=== PATIENT | female | born 1960 | race Caucasian/White ===

== ENCOUNTER 2020-06-28 13:43 | Inpatient (IN) | payer OTHER, SELFPAY ==
[~2020-06-28] VITALS: Ht 167.6 cm; Wt 61.2 kg
[2020-06-28 14:04] VITALS: BP 121/52
--- NOTE | 2020-06-28 15:36 | NUR ---
C/O CHILLS, FEVER, ABD PAIN, COUGH, MILD SOB X2 WEEKS PMH: DM, CHF NKDA
--- NOTE | 2020-06-28 15:41 | NUR ---
COVID SWAB PERFORMED AND WALKED TO LAB
[2020-06-28 18:03] LABS: BASOPHILS % (AUTO) 0.1 % (0.0-2.0); EOSINOPHILS % (AUTO) 0.1 % (0.0-4.0); HEMATOCRIT 32.6 % (36-48); LYMPHOCYTES # (AUTO) 1.6 K/uL (2.5-16.5); LYMPHOCYTES % (AUTO) 19.1 % (20.5-51.1); MEAN CORPUSCULAR HEMOGLOBIN 29 pg (27-31); MEAN CORPUSCULAR HGB CONC 34 g/dL (33-37); MEAN CORPUSCULAR VOLUME 84.3 fL (80-94); MONOCYTES # (AUTO) 0.9 K/uL (0.8-1.0); MONOCYTES % (AUTO) 10.9 % (1.7-9.3); NEUTROPHILS # (AUTO) 5.7 K/uL (1.8-7.7); NEUTROPHILS % (AUTO) 69.8 % (42.2-75.2); PLATELET COUNT (AUTO) 314 K/uL (140-450); RED BLOOD CELL COUNT(AUTO) 3.87 MIL/uL (4.20-5.40); WHITE BLOOD COUNT (AUTO) 8.2 K/uL (4.8-10.8)
--- NOTE | 2020-06-28 18:11 | NUR ---
INFLUENZA & RSV SWABS DONE. WALKED TO LAB
--- NOTE | 2020-06-28 18:11 | NUR ---
PT ABLE TO PRODUCE URINE SPECIMEN AT THIS TIME. SPECIMEN IN DIRTY UTILITY.
[2020-06-28 18:21] LABS: PROTHROMBIN TIME 9.1 secs (10.8-13.4)
[2020-06-28 18:24] LABS: ALBUMIN 2.4 g/dL (3.4-5.0); ANION GAP 15.5 (8-16); CARBON DIOXIDE 24.4 mmol/L (21-32); CREATININE 1.2 mg/dL (0.6-1.3); LACTATE DEHYDROGENASE 424 U/L (81-234); POTASSIUM 3.9 mmol/L (3.5-5.1); TOTAL BILIRUBIN 0.3 mg/dL (0.0-1.0)
--- NOTE | 2020-06-28 18:46 | NUR ---
VINCE SWAB DONE. WALKED TO LAB.
[2020-06-28 18:50] LABS: RSV NEGATIVE (NEGATIVE)
--- NOTE | 2020-06-28 19:35 | NUR ---
PT WAS NOTED DESATURATING ON RA PT WAS PLACED ON 2L VIA NC. SATURATION INCREASED TO 94%. WILL CONTINUE TO MONITOR. ON CARDIAC MONITORING, PULSE OXIMETRY AND BP MONITORING.
--- NOTE | 2020-06-28 19:37 | NUR ---
REPORT GIVEN TO RISHABH RUANO. ALL CARES TRANSFERRED AT THIS TIME.
[2020-06-28 19:59] LABS: APPEARANCE,URINE CLEAR (CLEAR); BILIRUBIN,URINE NEGATIVE (NEGATIVE); BLOOD, URINE NEGATIVE (NEGATIVE); COLOR,URINE YELLOW (YELLOW); LEUKOCYTE ESTERASE ,URINE TRACE (NEGATIVE); NITRITE, URINE NEGATIVE (NEGATIVE); UGLUCOSE NEGATIVE (NEGATIVE)
[2020-06-28 21:10] LABS: RBC,URINE 0-5 /HPF (0-5)
[2020-06-28] MEDS ORDERED: HYDROcodone/APAP 5/325 MG 1 TAB TAB PO PRN (21:15)
[2020-06-28] MEDS ORDERED: ACETAMINOPHEN 325 MG TAB PO PRN (21:15)
[2020-06-28] MEDS ORDERED: MORPHINE SULFATE 2 MG/ML SYR IVP PRN (21:15)
[2020-06-28] MEDS ORDERED: LOVENOX 1MG/KG Q12H SUBQ SCH (21:20)
--- NOTE | 2020-06-28 21:26 | NUR ---
CALLED AFTER HOURS PHARMACY SPOKE WITH ALLISON REGARDING MEDICATIONS NOT ON EMAR SYSTEM. VERBALIZED SHE WOULD WORK ON MEDICATIONS.
[2020-06-28] MEDS ORDERED: AZITHROMYCIN 500 MG INJ VIAL IV ONE (21:32)
[2020-06-28] MEDS ORDERED: cefTRIAXone 1,000 MG VIAL ONE (21:33)
--- NOTE | 2020-06-28 21:35 | NUR ---
20 G IV SITE ESTABLISHED TO R AC, SITE WAS FLUSHED WITH 10 ML OF 0.9% NS. SITE WAS PATENT NO INFILTRATION NOTED.
--- NOTE | 2020-06-28 22:00 | NUR ---
PT C/O MODERATE "SHARP" LOWER ABD PAIN 12/27. ABD WAS ROUND SOFT AND NON-TENDER TO TOUCH. ACTIVE BOWEL SOUNDS TO ALL QUADRANTS. Addendum: 06/28/20 at 2206 by MEDGE PT WAS GIVEN NORCO FOR PAIN AT THIS TIME.
[2020-06-28] MEDS: AZITHROMYCIN 500 MG in DEXTROSE 5% 250 ML IV SCH (22:03)
[2020-06-28] MEDS: ENOXAPARIN 60 MG/0.6 ML SYR SUBQ SCH (22:14)
--- NOTE | 2020-06-28 22:32 | NUR ---
BERNARD 337. BP: 124/45. PAGED DR. DAMON AT AT AFTER HOURS PHYSICIAN, SPOKE WITH GAS APPLIANCE REPAIRER AND STATED SHE WOULD PAGE DR. DAMON.
--- NOTE | 2020-06-28 22:35 | NUR ---
RECEIVED CALL BACK FROM DR. DAMON WITH NEW ORDERS FOR SLIDDING SCALE COVERAGE AND 1L OF 0.9% NS TO BE GIVEN ONCE FOR LOW DYSTOLIC BP. Addendum: 06/28/20 at 2312 by SERENA *ORDER OF LISPRO SLIDDING SCALE COVERAGE.
[2020-06-28] MEDS ORDERED: NACL 0.9% 1,000 ML IV SCH (23:00)
[2020-06-28] MEDS ORDERED: INSULIN LISPRO SLIDING SCALE 100 UNITS/ML VIAL SUBQ PRN (23:00)
--- NOTE | 2020-06-28 23:12 | NUR ---
PT WAS GIVEN 8 UNITS OF LISPRO INSULIN FOR BS OF 337. WILL CONTINUE TO MONITOR FOR EFFECTIVENESS.
[2020-06-29] MEDS ORDERED: INSULIN LISPRO SLIDING SCALE 100 UNITS/ML VIAL SUBQ SCH
--- NOTE | 2020-06-29 00:05 | NUR ---
ACCUCHECK AT THIS TIME WAS 197. NOTIFIED DR. DAMON NO NEW ORDERS AT THIS TIME. VERBALIZED "OKAY THATS FINE". Addendum: 06/29/20 at 0335 by SERENA *NOTIFIED VIA TELEPHONE AFTER HOURS SERVICE PAGE.
[2020-06-29] MEDS ORDERED: NACL 0.9% 1,000 ML IV ONE (00:10)
[2020-06-29 01:23] LABS: C-REACTIVE PROTEIN QUANT 27.7 mg/dL (0.0-0.9)
[2020-06-29] MEDS: INSULIN LISPRO SLIDING SCALE 100 UNITS/ML VIAL SUBQ PRN (02:27)
--- NOTE | 2020-06-29 02:35 | NUR ---
PT LAYING IN BED IN ACUTE DISTRESS NOTED, BREATHING EVEN AND UNLABORED WITH 4L OF OXYGEN VIA NC. PT WAS ASSISTED TO A COMFORTABLE POSITION AND ADJUSTED THE HOB. ASSISTED PT WITH BEDSIDE BED BOONE. SKIN WAS NOTED CLEAN, DRY & INTACT. WILL CONTINUE ON CARDAIC MONITORING, BP MONITORING AND PULSE OXIMETRY.
--- NOTE | 2020-06-29 03:55 | NUR ---
PT WAS ASSISTED TO USE THE BATHROOM VIA BEDSIDE BEDPAN AND ADJUSTED HOB TO A COMFORTABLE POSITION.
--- NOTE | 2020-06-29 05:33 | NUR ---
PT UNABLE TO PROVIDE HOME MEDICATION REGIMEN PROVIDED DAUGHTERS CONTACT INFO . DAUGHTER PROVIDED MEDICATION REGIMEN. ALSO PROVIDED WITH AN UPDATE ON PT STATUS WITH PT'S VERBAL CONSENT.
--- NOTE | 2020-06-29 05:35 | NUR ---
PT WAS NOTED DE-SATURATING ON 4 L INCREASED OXYGEN TO 6 L VIA NC. SATURATION INCREASED TO 96%.
[2020-06-29] MEDS ORDERED: CARV3.122 PO (05:39)
[2020-06-29] MEDS ORDERED: HYDR-3320 PO (05:39)
[2020-06-29] MEDS ORDERED: AMLO5TAB PO (05:39)
[2020-06-29] MEDS ORDERED: HUM SUBQ (05:39)
[2020-06-29] MEDS: ONDANSETRON 4 MG/2 ML VIAL IVP PRN (06:46)
--- NOTE | 2020-06-29 06:54 | NUR ---
PT C/O NAUSEA AND VOMITING A SMALL AMOUNT OF CLEAR LIQUID. PT WAS GIVEN PRN ZOFRAN. CHANGED BED SHEETS AT THIS TIME. ASSISTED PT TO USE THE BATHROOM VIA BEDSIDE BOONE. PT CONTINUES ON CARDIAC MONITORING, PULSE OXIMETRY AND BP MONITORING. BED LOCKED AND IN LOWEST POSITION. ADJUSTED HOB TO DESIRED HEIGHT.
--- NOTE | 2020-06-29 06:59 | NUR ---
ACCUCHECK 149. NO SLIDDING SCALE COVERAGE REQUIRED.
--- NOTE | 2020-06-29 07:11 | NUR ---
LAB A BEDSIDE FOR BLOOD DRAW.
--- NOTE | 2020-06-29 07:21 | NUR ---
Report received from RISHABH Rosales from cuff slitter for continuity of care
--- NOTE | 2020-06-29 07:23 | NUR ---
REPORT GIVEN TO ABBIE KEATING FOR CONTINUITY OF CARE.
--- NOTE | 2020-06-29 07:42 | NUR ---
BIBS for c/o fever, chills, cough, SOB, N&V, abd pain x 2 weeks. Patient swabbed for COVID-19 rapid POSITIVE. NKDA, PMH DM2 and CHF. Patient in droplet isolation, awaiting Med Surg bed/room A, A, O x 4, Indonesian speaking only, screams and calls out instead of using call light for RN. Resp even and unlabored, desaturates w/o O2, continuous O2 @ 6l/min NC O2 sat w/O2 is 94-97% HOB elevated, VVS, in NAD. IV #20g right AC, patent Moving all exts w/o difficulty, skin intact Will continue to monitor
[2020-06-29] MEDS ORDERED: LOSA25TA32 PO (07:50)
[2020-06-29] MEDS ORDERED: AMLO-3 PO (07:50)
--- NOTE | 2020-06-29 08:08 | NUR ---
Patient screaming for water in [place]. Brought patient new pitcher of water and Regular diet tray for breakfast
[2020-06-29 08:39] LABS: EOSINOPHILS % (AUTO) 0.2 % (0.0-4.0); HEMOGLOBIN 10.6 g/dL (12.0-16.0); MEAN CORPUSCULAR VOLUME 84.7 fL (80-94); MONOCYTES % (AUTO) 9.2 % (1.7-9.3)
[2020-06-29 08:42] LABS: BASOPHILS % (AUTO) 0.2 % (0.0-2.0); HEMATOCRIT 31.2 % (36-48); LYMPHOCYTES # (AUTO) 1.7 K/uL (2.5-16.5); LYMPHOCYTES % (AUTO) 12.3 % (20.5-51.1); MEAN CORPUSCULAR HEMOGLOBIN 29 pg (27-31); MEAN CORPUSCULAR HGB CONC 34 g/dL (33-37); MONOCYTES # (AUTO) 1.3 K/uL (0.8-1.0); NEUTROPHILS # (AUTO) 11.1 K/uL (1.8-7.7); NEUTROPHILS % (AUTO) 78.1 % (42.2-75.2); PLATELET COUNT (AUTO) 254 K/uL (140-450); RED BLOOD CELL COUNT(AUTO) 3.68 MIL/uL (4.20-5.40); WHITE BLOOD COUNT (AUTO) 14.2 K/uL (4.8-10.8)
--- NOTE | 2020-06-29 08:55 | NUR ---
Patient ate 80% of regular diet breakfast, tolerated well
[2020-06-29] MEDS: ASCORBIC ACID 500 MG TAB PO SCH (09:00)
[2020-06-29] MEDS: DEXAMETHASONE 4 MG/ML VIAL IVP SCH (09:00)
[2020-06-29] MEDS: ZINC SULF 220 MG CAP PO SCH ×2 (09:00→22:30)
[2020-06-29 09:10] LABS: ALBUMIN 2.2 g/dL (3.4-5.0); ANION GAP 12.4 (8-16); CARBON DIOXIDE 25.6 mmol/L (21-32); CREATININE 0.9 mg/dL (0.6-1.3); MAGNESIUM 1.6 mg/dL (1.8-2.4); TOTAL BILIRUBIN 0.3 mg/dL (0.0-1.0)
--- NOTE | 2020-06-29 09:50 | NUR ---
Patient used the bedpan to void, in isolation and cannot ambulate to washroom
[2020-06-29] MEDS: CHOLECALCIFEROL 1,000 IU TAB PO SCH (10:10)
[2020-06-29] MEDS: ENOXAPARIN 60 MG/0.6 ML SYR SUBQ SCH ×2 (10:15→21:00)
--- NOTE | 2020-06-29 12:48 | NUR ---
Regular diet lunch tray given to patient, HOB elevated, VVS
--- NOTE | 2020-06-29 13:07 | NUR ---
Patient ate 100% of regular diet lunch, tolerated well
--- NOTE | 2020-06-29 14:22 | NUR ---
SOCIAL WORK NOTE: SW WAS UNABLE TO MEET PATIENT AT BEDSIDE DUE TO MEDICAL CONDITION. SW CONTACTED PATIENT'S DAUGHTER DEBBI BARAJAS [phone] TO COMPLETE ASSESSMENT. SW LEFT VM. SW WILL FOLLOW UP.
--- NOTE | 2020-06-29 16:35 | NUR ---
Patient c/o feeling isolated and uncared for due to droplet isolation practice
--- NOTE | 2020-06-29 17:24 | NUR ---
Patient voided using bedpan due to isolation status, wolfgang urine
--- NOTE | 2020-06-29 18:24 | NUR ---
Regular diet dinner tray brought to patient
--- NOTE | 2020-06-29 18:50 | NUR ---
fingerstick blood sugar 477 mg/dl, will emmanuel LARIOS
--- NOTE | 2020-06-29 19:20 | NUR ---
received detailed report from RISHABH Riojas
--- NOTE | 2020-06-29 19:20 | NUR ---
Detailed report given to RISHABH Noriega for towel stretcher, questions answered, orders and meds reviewed
--- NOTE | 2020-06-29 19:35 | NUR ---
awake and alert, sitting on side of bed. ATE 100% OF DIET TRAY. STATES " I FEEL BETTER"
[2020-06-29] MEDS: AZITHROMYCIN 500 MG in DEXTROSE 5% 250 ML IV SCH (21:00)
--- NOTE | 2020-06-29 22:15 | NUR ---
REPORT CALLED TO RISHABH TYLER
[2020-06-29] MEDS ORDERED: AZITHROMYCIN 500 MG INJ VIAL IV ONE (22:39)
[2020-06-29] MEDS ORDERED: cefTRIAXone 1,000 MG VIAL ONE (22:40)
--- NOTE | 2020-06-29 22:50 | NUR ---
TO 102A VIA W/C
[2020-06-29 22:55] VITALS: BP 122/50
--- NOTE | 2020-06-29 22:55 | NUR ---
RECEIVED PATIENT IN STABLE CONDITION FROM ER VIA WHEELCHAIR. AAOX4. RESPIRATIONS EVEN, UNLABORED. CONTINUES ON O2 4L VIA NC, O2SAT 94%. SKIN WARM, DRY. SKIN INTACT. IV SITE NOTED TO RIGHT AC 20G PATENT/INTACT. NO C/O PAIN. NO S/S ACUTE DISTRESS. ABDOMEN SOFT, NONTENDER. PATIENT IS CONTINENT OF B/B. MRSA SCREEN COMPLETED. PATIENT ORIENTED TO ROOM/STAFF/CALL LIGHT. PATIENT AMBULATES WELL, SLIGHTLY SOB UPON EXERTION. ENCOURAGED FREQUENT REST PERIODS. PATIENT VERBALIZED UNDERSTANDING. PLAN OF CARE DISCUSSED. CALL LIGHT IN REACH. ISOLATION PRECAUTIONS OBSERVED BY ALL STAFF.
--- NOTE | 2020-06-29 23:00 | NUR ---
DUE MEDS GIVEN. PATIENT IS RESTING COMFORTABLY IN BED. NO S/S ACUTE DISTRESS. NO C/O PAIN. PROVIDED EDUCATION REGARDING OXYGEN THERAPY. PATIENT VERBALIZED UNDERSTANDING BUT NEEDS REINFORCEMENT. CALL LIGHT WITHIN REACH AT ALL TIMES. ISOLATION PRECAUTIONS OBSERVED BY ALL STAFF.
[2020-06-30] VITALS: BP 119/49
--- NOTE | 2020-06-30 01:57 | NUR ---
PATIENT IS ASLEEP. NO S/S ACUTE DISTRESS. CALL LIGHT WITHIN REACH. ISOLATION PRECAUTIONS OBSERVED BY ALL STAFF.
[2020-06-30] MEDS: ONDANSETRON 4 MG/2 ML VIAL IVP PRN (02:50)
--- NOTE | 2020-06-30 03:09 | NUR ---
PATIENT C/O NAUSEA. MEDICATED ORDERED. PATIENT VERBALIZED RELIEF. NO S/S ACUTE DISTRESS. FREQUENT ROUNDS ON PATIENT. CALL LIGHT WITHIN REACH. ISOLATION PRECAUTIONS OBSERVED BY ALL STAFF.
--- NOTE | 2020-06-30 05:00 | NUR ---
MADE ROUNDS. PATIENT IS ASLEEP. NO S/S ACUTE DISTRESS. CALL LIGHT WITHIN REACH.
--- NOTE | 2020-06-30 06:14 | NUR ---
PATIENT WANTED HER BLOOD GLUCOSE CHECKED. GLUCOSE AT 468. COVERAGE GIVEN. PRITI LARIOS. AWAITING RESPONSE.
[2020-06-30] MEDS: BLOOD GLUCOSE MONITORING 1 DEV DEV FS SCH ×2 (06:43→11:37)
[2020-06-30] MEDS: INSULIN LISPRO SLIDING SCALE 100 UNITS/ML VIAL SUBQ PRN (06:44)
--- NOTE | 2020-06-30 07:20 | NUR ---
RECEIVED REPORT FROM NIGHT NURSE PATIENT IS AAOX4 ON CCHO 60 GRAMS DIET, OXYGEN AT 2-4 LPM VIA NC, AMBULATORY, CONTINENT, SKIN INTACT, IV INTACT AND PATENT ON RIGHT AC , COVID 19 RAPID NEGATIVE.SAFETY MEASURES IN PLACE AND CALL LIGHT WITHIN REACH. WILL CONTINUE TO MONITOR
[2020-06-30 08:00] VITALS: BP 136/61
--- NOTE | 2020-06-30 09:00 | NUR ---
MEDICATION DUE GIVEN AND NO DISTRESS NOTED.
[2020-06-30] MEDS: ZINC SULF 220 MG CAP PO SCH (09:26)
[2020-06-30] MEDS: CHOLECALCIFEROL 1,000 IU TAB PO SCH (09:26)
[2020-06-30] MEDS: ASCORBIC ACID 500 MG TAB PO SCH (09:26)
[2020-06-30] MEDS: ENOXAPARIN 60 MG/0.6 ML SYR SUBQ SCH (09:27)
[2020-06-30] MEDS: DEXAMETHASONE 4 MG/ML VIAL IVP SCH (09:27)
[2020-06-30 09:54] LABS: ALBUMIN 1.9 g/dL (3.4-5.0); ANION GAP 14.3 (8-16); CARBON DIOXIDE 22.5 mmol/L (21-32); CREATININE 1.1 mg/dL (0.6-1.3); POTASSIUM 4.8 mmol/L (3.5-5.1); TOTAL BILIRUBIN 0.3 mg/dL (0.0-1.0)
[2020-06-30 10:00] LABS: BASOPHILS % (AUTO) 0.4 % (0.0-2.0); HEMATOCRIT 30.2 % (36-48); HEMOGLOBIN 10.3 g/dL (12.0-16.0); LYMPHOCYTES # (AUTO) 0.5 K/uL (2.5-16.5); LYMPHOCYTES % (AUTO) 13.1 % (20.5-51.1); MEAN CORPUSCULAR HEMOGLOBIN 29 pg (27-31); MEAN CORPUSCULAR HGB CONC 34 g/dL (33-37); MEAN CORPUSCULAR VOLUME 84.5 fL (80-94); MONOCYTES # (AUTO) 0.5 K/uL (0.8-1.0); MONOCYTES % (AUTO) 12.2 % (1.7-9.3); NEUTROPHILS % (AUTO) 74.3 % (42.2-75.2); PLATELET COUNT (AUTO) 352 K/uL (140-450); RED BLOOD CELL COUNT(AUTO) 3.57 MIL/uL (4.20-5.40); RED CELL DISTRIBUTION WIDTH 12.8 % (11.6-13.7); WHITE BLOOD COUNT (AUTO) 4.1 K/uL (4.8-10.8)
--- NOTE | 2020-06-30 10:40 | NUR ---
RECEIVED REPORT FROM LAB PATIENT BLOOD SUGAR 536, DR STANLEY DEL CID.
--- NOTE | 2020-06-30 11:19 | NUR ---
PATIENT HAS BEEN SCREENED AND CATEGORIZED MODERATE NUTRITION RISK. PATIENT WILL BE SEEN WITHIN 3-5 DAYS OF ADMISSION. FNS REFERRAL RECEIVED, INAPPROPRIATE FOR REFERRAL WILL ASS PER PROTOCOL. 07/01/20 07/03/[address]
[2020-06-30] MEDS ORDERED: INSULIN LANTUS 100 UNITS/ML 10 ML VIAL SUBQ SCH (12:02)
[2020-06-30 12:50] LABS: D-DIMER 1090 ng/ml (0-400)
[2020-06-30] MEDS ORDERED: DEC4 PO (12:52)
[2020-06-30] MEDS ORDERED: APIX2.5 PO (12:52)
[2020-06-30] MEDS ORDERED: AZIT250T11 PO (12:57)
[2020-06-30 15:32] LABS: FIBRINOGEN 840 mg/dL (200-400)
[2020-06-30] MEDS ORDERED: INSULIN LISPRO 100 UNITS/ML VIAL SUBQ SCH (16:30)
--- NOTE | 2020-06-30 17:15 | NUR ---
DISCHARGE INSTRUCTIONS GIVEN TO PATIENT AND DAUGHTER AT BEDSIDE TO CONTINUE MEDICATION AND FOLLOW UP WITH PCP AFTER DISCHARGE, ISOLATE SELF FOR 14 DAYS TO PREVENT SPREAD OF VIRUS. SEEK MEDICAL HELP IN CASE OF EMERGENCIES. REMOVED ID BAND, IV INTACT AND COMPLETE. CHANGED PATIENT CLOTHES AND PATIENT TOOK ALL HER BELONGINGS. ESCORTED TO FRONT LOBBY PT IS GOING HOME ACCOMPANIED BY FAMILY. PT IS STABLE.
[2020-07-01] MEDS ORDERED: INSULIN LANTUS 100 UNITS/ML 10 ML VIAL SUBQ SCH (09:00)
== END 2020-06-30 17:15 | disposition home or self-care (01) | DRG 137 ==
LOC: MED 13:43 → MTU 21:12 → MMU 06-29 22:05
PROVIDERS: ADMIT Hospitalist; ATTEND Hospitalist
DX: U07.1 COVID-19 (principal); J18.9 Pneumonia, unspecified organism; E87.1 Hypo-osmolality and hyponatremia; E11.65 Type 2 diabetes mellitus with hyperglycemia; Z20.828 Contact with and (suspected) exposure to other viral communicable diseases; Z98.891 History of uterine scar from previous surgery; R09.02 Hypoxemia; D64.9 Anemia, unspecified; R10.9 Unspecified abdominal pain
CPT/HCPCS: 36415; 71045; 80053; 81001; 82550; 82728; 82948; 83036; 83605; 83615; 83735; 83880; 84443; 84484; 85025; 85379; 85384; 85610; 85730; 86140; 87040; 87081; 87086; 87420; 87804; 93005; 96365; 96368; 99291; J0456; J0696; J1100; J1650; J1815; J2405; J7060; U0003

== ENCOUNTER 2022-09-05 08:13 | Day surgery (SDC) | payer OTHER ==
[~2022-09-05] VITALS: Ht 157.5 cm; Wt 83.9 kg
[~2022-09-05 08:13] MED LIST: AMLO-3 PO; AMLO5TAB PO; APIX2.5 PO; AZIT250T11 PO; CARV3.122 PO; DEC4 PO; HUM SUBQ; HYDR-3320 PO; LOSA25TA32 PO
[2022-09-05] MEDS ORDERED: LIDOCAINE 2% 100 MG/5 ML UJET TP ONE (09:12)
[2022-09-05] MEDS ORDERED: fentaNYL citrate 0.05 MG/ML VIAL ONE (09:12)
== END 2022-09-05 10:47 | disposition home or self-care (01) ==
LOC: MMU 08:13 → MDS 08:13
PROVIDERS: ATTEND Internal Medicine Gastroenterology
DX: Z12.11 Encounter for screening for malignant neoplasm of colon (principal); K57.30 Diverticulosis of large intestine without perforation or abscess without bleeding; I10 Essential (primary) hypertension; E11.9 Type 2 diabetes mellitus without complications; Z79.4 Long term (current) use of insulin; Z79.899 Other long term (current) drug therapy; Z20.822 Contact with and (suspected) exposure to COVID-19
CPT/HCPCS: 45378; 87426; J3010

== ENCOUNTER 2023-02-28 01:41 | Observation (INO) | payer OTHER ==
[~2023-02-28] VITALS: Ht 157.5 cm; Wt 81.6 kg
[2023-02-28 01:42] VITALS: BP 151/74; PULSE 78; RESP 16; TEMP 96.7; O2SAT 98
[2023-02-28 04:46] LABS: BASOPHILS % (AUTO) 0.3 % (0.0-2.0); EOSINOPHILS # (AUTO) 0.2 K/uL (0-0.4); EOSINOPHILS % (AUTO) 2.1 % (0.0-4.0); HEMATOCRIT 35.9 % (36-48); HEMOGLOBIN 11.9 g/dL (12.0-16.0); LYMPHOCYTES # (AUTO) 3.7 K/uL (2.5-16.5); LYMPHOCYTES % (AUTO) 33.7 % (20.5-51.1); MEAN CORPUSCULAR HEMOGLOBIN 29 pg (27-31); MEAN CORPUSCULAR HGB CONC 33 g/dL (33-37); MEAN CORPUSCULAR VOLUME 87.5 fL (80-94); MONOCYTES % (AUTO) 8.7 % (1.7-9.3); NEUTROPHILS # (AUTO) 6.1 K/uL (1.8-7.7); NEUTROPHILS % (AUTO) 55.2 % (42.2-75.2); PLATELET COUNT (AUTO) 301 K/uL (140-450); RED BLOOD CELL COUNT(AUTO) 4.11 MIL/uL (4.20-5.40); RED CELL DISTRIBUTION WIDTH 13.1 % (11.6-13.7)
[2023-02-28 05:02] LABS: ALBUMIN 3.1 g/dL (3.4-5.0); ANION GAP 12.4 (8-16); CALCIUM 9.6 mg/dL (8.5-10.1); CARBON DIOXIDE 33.9 mmol/L (21-32); CREATININE 1.9 mg/dL (0.6-1.3); POTASSIUM 5.3 mmol/L (3.5-5.1); TOTAL BILIRUBIN 0.3 mg/dL (0.0-1.0)
[2023-02-28 05:10] LABS: INR 0.83 (0.8-1.2); PARTIAL THROMBOPLASTIN TIME 24.7 secs (22-35.6); PROTHROMBIN TIME 8.8 secs (10.8-13.4)
[2023-02-28] MEDS ORDERED: NACL 0.9% 1,000 ML IV ONE (06:00)
[2023-02-28] MEDS ORDERED: ASPIRIN 325 MG TAB PO ONE (07:25)
[2023-02-28] MEDS ORDERED: MORPHINE SULFATE 4 MG/ML SYR IVP ONE (07:25)
[2023-02-28] MEDS ORDERED: POTASSIUM CHLORIDE 10 MEQ TABER PO PRN (11:50)
[2023-02-28] MEDS ORDERED: ACETAMINOPHEN 325 MG TAB PO PRN (11:50)
[2023-02-28] MEDS ORDERED: ONDANSETRON 4 MG/2 ML VIAL IVP PRN (11:50)
[2023-02-28] MEDS ORDERED: KCL 20 MEQ IN 100 mL PREMIX 200 ML IV PRN (11:50)
[2023-02-28] MEDS ORDERED: MAGNESIUM OXIDE 400 MG TAB PO PRN (11:50)
[2023-02-28] MEDS ORDERED: HYDROcodone/APAP 5/325 MG 1 TAB TAB PO PRN (11:50)
[2023-02-28] MEDS ORDERED: MAG SULF 2000 MG/WATER PREMIX 50 ML IV PRN (11:50)
[2023-02-28] MEDS ORDERED: MORPHINE SULFATE 4 MG/ML SYR IVP PRN (11:50)
[2023-02-28 13:00] VITALS: PULSE 71; RESP 15; O2SAT 97
[2023-02-28 14:00] VITALS: BP 147/60; PULSE 71; PULSE 76; RESP 16; TEMP 97.3; O2SAT 97
[2023-02-28 16:00] VITALS: BP 156/51; PULSE 76; PULSE 79; PULSE 88; RESP 18; TEMP 98.9; O2SAT 98
[2023-02-28 20:00] VITALS: BP 156/63; PULSE 76; PULSE 77; RESP 18; TEMP 97.1; O2SAT 96
[2023-02-28] MEDS: carvediloL 3.125 MG TAB PO SCH (20:28)
[2023-02-28] MEDS: INSULIN LISPRO 100 UNITS/ML VIAL SUBQ SCH (21:00)
[2023-03-01] VITALS: BP 160/67; PULSE 73; PULSE 74; RESP 18; TEMP 96.7; O2SAT 94
[2023-03-01 04:00] VITALS: BP 135/61; PULSE 72; PULSE 75; RESP 17; TEMP 96.7; O2SAT 94
[2023-03-01 06:52] LABS: BASOPHILS % (AUTO) 0.5 % (0.0-2.0); EOSINOPHILS # (AUTO) 0.3 K/uL (0-0.4); EOSINOPHILS % (AUTO) 3.3 % (0.0-4.0); HEMATOCRIT 33.1 % (36-48); HEMOGLOBIN 11.1 g/dL (12.0-16.0); LYMPHOCYTES # (AUTO) 2.7 K/uL (2.5-16.5); LYMPHOCYTES % (AUTO) 32.1 % (20.5-51.1); MEAN CORPUSCULAR HEMOGLOBIN 29 pg (27-31); MEAN CORPUSCULAR HGB CONC 34 g/dL (33-37); MEAN CORPUSCULAR VOLUME 86.6 fL (80-94); MONOCYTES # (AUTO) 0.4 K/uL (0.8-1.0); MONOCYTES % (AUTO) 5.3 % (1.7-9.3); NEUTROPHILS % (AUTO) 58.8 % (42.2-75.2); PLATELET COUNT (AUTO) 260 K/uL (140-450); RED BLOOD CELL COUNT(AUTO) 3.82 MIL/uL (4.20-5.40); RED CELL DISTRIBUTION WIDTH 12.7 % (11.6-13.7); WHITE BLOOD COUNT (AUTO) 8.5 K/uL (4.8-10.8)
[2023-03-01 07:01] LABS: ALBUMIN 2.8 g/dL (3.4-5.0); CALCIUM 8.8 mg/dL (8.5-10.1); CARBON DIOXIDE 26.5 mmol/L (21-32); CREATININE 1.1 mg/dL (0.6-1.3); MAGNESIUM 1.4 mg/dL (1.8-2.4); POTASSIUM 4.5 mmol/L (3.5-5.1); TOTAL BILIRUBIN 0.4 mg/dL (0.0-1.0); TOTAL PROTEIN, SERUM 7.1 g/dL (6.4-8.2)
[2023-03-01 08:00] VITALS: BP 141/64; PULSE 75; PULSE 82; RESP 18; TEMP 96.7; O2SAT 100
[2023-03-01] MEDS ORDERED: amLODIPine 5 MG TAB PO SCH (09:00)
[2023-03-01] MEDS ORDERED: LOSARTAN 25 MG TAB PO SCH (09:00)
[2023-03-01] MEDS ORDERED: DOCUSATE SODIUM 100 MG GELCAP PO SCH (09:00)
[2023-03-01] MEDS: carvediloL 3.125 MG TAB PO SCH (09:04)
[2023-03-01] MEDS: INSULIN LISPRO 100 UNITS/ML VIAL SUBQ SCH (09:06)
[2023-03-01 12:00] VITALS: BP 119/50; PULSE 67; PULSE 70; RESP 18; TEMP 96.2; O2SAT 95
[2023-03-01 15:26] VITALS: BP 119/50; PULSE 67; RESP 18; TEMP 96.2
== END 2023-03-01 16:06 | disposition home or self-care (01) ==
LOC: MED 01:41 → MMU 11:55 → INTOOBSV 11:55 → MTU 13:26
PROVIDERS: ADMIT Hospitalist; ATTEND Hospitalist
DX: R07.89 Other chest pain (principal); R42 Dizziness and giddiness; R11.2 Nausea with vomiting, unspecified; R51.9 Headache, unspecified; I11.0 Hypertensive heart disease with heart failure; I50.9 Heart failure, unspecified; E11.9 Type 2 diabetes mellitus without complications; E78.5 Hyperlipidemia, unspecified; E78.00 Pure hypercholesterolemia, unspecified; Z79.899 Other long term (current) drug therapy
CPT/HCPCS: 36415; 71045; 80053; 82948; 83735; 83880; 84484; 85025; 85610; 85730; 87081; 96361; 96365; 96366; 96372; 96374; 99284; G0378; J1644; J1815; J2270; J3475; Q0092; 96375

== ENCOUNTER 2024-05-19 06:24 | Emergency (ER) | payer OTHER ==
[~2024-05-19] VITALS: Ht 165.1 cm; Wt 104.3 kg
[2024-05-19 06:31] VITALS: BP 177/67; PULSE 71; RESP 16; TEMP 98.7; O2SAT 99
[2024-05-19] MEDS: KETOROLAC 30 MG/ML VIAL IM ONE (06:51)
[2024-05-19] MEDS: LIDOCAINE 5% 1 EA PATCH TP ONE (06:51)
[2024-05-19] MEDS: methocarbamoL 500 MG TAB PO ONE (06:52)
[2024-05-19 07:27] LABS: BILIRUBIN,URINE NEGATIVE (NEGATIVE); BLOOD, URINE TRACE-I (NEGATIVE); COLOR,URINE YELLOW (YELLOW); LEUKOCYTE ESTERASE ,URINE 1+ (NEGATIVE); NITRITE, URINE POSITIVE (NEGATIVE); PROTEIN,URINE 1+ (NEGATIVE); UGLUCOSE NEGATIVE (NEGATIVE); UROBILINOGEN,URINE 0.2 EU/dL (0.2 - 1)
[2024-05-19 07:28] LABS: APPEARANCE,URINE HAZY (CLEAR)
[2024-05-19 08:09] LABS: BACTERIA,URINE 1+ /HPF (None Seen); RBC,URINE 0-5 /HPF (0-5); WBC,URINE 60-80 /HPF (0-5)
[2024-05-19 08:10] LABS: SQUAMOUS EPITHELIAL CELL,UR 0-3 (FEW) /LPF (0-3 (FEW))
[2024-05-19] MEDS ORDERED: LID5T TP (08:40)
[2024-05-19] MEDS ORDERED: CEPH-588 PO (08:40)
[2024-05-19] MEDS ORDERED: ACET500T99 PO (08:40)
[2024-05-19] MEDS ORDERED: IBUP-2213 PO (08:40)
[2024-05-19] MEDS: MORPHINE SULFATE 4 MG/ML SYR IM ONE (08:49)
[2024-05-19 09:58] VITALS: BP 181/47; PULSE 67
[2024-05-19] MEDS: CLONIDINE HYDROCHLORIDE 0.1 MG TAB PO ONE (09:58)
[2024-05-19 10:30] VITALS: RESP 18; O2SAT 100
== END 2024-05-19 10:57 | disposition home or self-care (01) ==
LOC: MED 06:24
DX: N39.0 Urinary tract infection, site not specified (principal); M54.41 Lumbago with sciatica, right side; E11.9 Type 2 diabetes mellitus without complications; I10 Essential (primary) hypertension; Z79.899 Other long term (current) drug therapy; Z79.4 Long term (current) use of insulin; Z79.01 Long term (current) use of anticoagulants
CPT/HCPCS: 81001; 87086; 96372; 99284; J1885; J2270; 87186